=== PATIENT | female | born 1950 | race Two or more races ===

== ENCOUNTER 2021-11-10 13:55 | Emergency (ER) | payer OTHER ==
[~2021-11-10] VITALS: Ht 154.9 cm; Wt 54.4 kg
[2021-11-10] MEDS ORDERED: SYNTHROID50 MCG PO (14:59)
[2021-11-10] MEDS ORDERED: TOPROL XL25 M1 (14:59)
[2021-11-10] MEDS ORDERED: BUPROPION HCL200 M1 (15:00)
== END 2021-11-10 20:56 | disposition home or self-care (01) ==
LOC: ER 13:55
DX: R07.89 Other chest pain (principal)

== ENCOUNTER 2024-05-02 09:46 | Outpatient (CLI) | payer OTHER ==
[~2024-05-02 09:46] MED LIST: BUPROPION HCL200 M1; SYNTHROID50 MCG PO; TOPROL XL25 M1
== END 2024-05-02 09:53 | disposition home or self-care (01) ==
LOC: TOM 09:46
DX: J44.0 Chronic obstructive pulmonary disease with (acute) lower respiratory infection (principal)

== ENCOUNTER 2025-02-22 12:46 | Outpatient (CLI) | payer OTHER | END 2025-02-22 12:59 | disposition home or self-care (01) | LOC: MAMO-SONO 12:46 | PROVIDERS: ATTEND Student in an Organized Health Care Education/Training Program | DX: N60.11 Diffuse cystic mastopathy of right breast (principal); N60.12 Diffuse cystic mastopathy of left breast; Z12.31 Encounter for screening mammogram for malignant neoplasm of breast ==

== ENCOUNTER 2025-04-03 12:38 | Outpatient (CLI) | payer OTHER | END 2025-04-03 12:41 | disposition home or self-care (01) | LOC: SONOGRAMA 12:38 | PROVIDERS: ATTEND Student in an Organized Health Care Education/Training Program | DX: R10.2 Pelvic and perineal pain (principal) ==